=== PATIENT | female | born 1985 | race Caucasian/White ===

== ENCOUNTER 2016-03-27 14:41 | Emergency (ER) | payer MEDICAID, OTHER ==
[~2016-03-27] VITALS: Wt 106.0 kg
[2016-03-27] MEDS ORDERED: ALBU8.5H3 INH (16:21)
[2016-03-27] MEDS ORDERED: BENZ100C70 PO (16:22)
[2016-03-27] MEDS ORDERED: AZIT250T94 PO (16:22)
[2016-03-27] MEDS ORDERED: IBUP-1542 PO (16:22)
--- NOTE | 2016-03-27 16:31 | ERD ---
ER Documentation Chief Complaint Date/Time DATE: 03/27/16 TIME: 16:25 Chief Complaint COUGH FOR THE PAST FEW WEEKS WITH UPPER BACK PAIN . NO TRAUMA HPI Emmy is a 30-year-old female who presents to the emergency department with a cough 4 weeks. Patient states that the cough is dry in nature. Patient denies any phlegm production. Patient states she had a fever previously but it has now resolved. She states that she has upper back pain with coughing only. Patient denies any medication. Patient reports occasional rhinorrhea and throat irritation. Patient denies any shortness of breath, chest pain, diaphoresis. She states that she does have some wheezing at night. Patient denies any abdominal pain, nausea, vomiting, loss of consciousness. Sick contacts. No recent travel. ROS All systems reviewed and are negative except as per history of present illness. Medications Home Meds Active Scripts Benzonatate* (Tessalon Perle*) 100 Mg Capsule, 100 MG PO Q8H Y for COUGH, #15 CAP Prov:PACO MENON PA-C 03/27/16 Ibuprofen* (Motrin*) 600 Mg Tab, 600 MG PO Q6, #30 TAB Prov:PACO MENON PA-C 03/27/16 Azithromycin* (Zithromax*) 250 Mg Tablet, 250 MG PO .ZPACK DIRECTED, #6 TAB TAKE 500 MG (2 TABS) THE FIRST DAY THEN 250 MG (1 TAB) DAYS 2-5 Prov:PACO MENON PA-C 03/27/16 Albuterol Sulfate* (Proair HFA*) 8.5 Gm Hfa.aer.ad, 2 PUFF INH Q4H Y for WHEEZING AND SOB, #1 INHALER Prov:PACO MENON PA-C 03/27/16 Allergies Allergies: Coded Allergies: Penicillins (Verified Allergy, Unknown, 03/27/16) PMhx/Soc History of Surgery: Yes () Anesthesia Reaction: No Hx Neurological Disorder: No Hx Respiratory Disorders: No Hx Cardiac Disorders: No Hx Psychiatric Problems: No Hx Miscellaneous Medical Probl: No Hx Alcohol Use: No Hx Substance Use: No Hx Tobacco Use: No FmHx Family History: No diabetes Physical Exam Vitals Vital Signs Date Time Temp Pulse Resp B/P Pulse Ox O2 Delivery O2 Flow Rate FiO2 03/27/16 14:48 98.6 80 21 131/76 100 Physical Exam GENERAL: Well-developed, well-nourished female. Appears in no acute distress HEAD: Normocephalic, atraumatic. No deformities or ecchymosis. EYE: Pupils equal, round, and reactive to light. EOMs intact. No conjunctival erythema. No scleral icterus. No eye discharge. ENT: External ear without any masses or tenderness. Auditory canals clear bilaterally. TM visualized bilaterally, non-erythematous, non-bulging. Nasal mucosa pink with no discharge. Oropharynx is pink without any tonsillar erythema or exudates. No uvula deviation. No kissing tonsils. NECK: Supple. No lymphadenopathy. No meningismus. Normal Range of motion of the neck. LUNG: Clear to auscultation bilaterally. No rhonchi, wheezing, rales or coarse breath sounds. HEART: Regular rate and rhythm. No murmurs, rubs or gallops. EXTREMITIES: Equal pulses bilaterally. No peripheral clubbing, cyanosis or edema. No unilateral leg swelling. NEUROLOGIC: Alert and oriented to person, place and time. Moving all four extremities. 5/5 strength in all extremities. Normal speech. Steady gait. SKIN: Normal color. Warm and dry. No rashes or lesions. Procedures/MDM MEDICAL DECISION MAKING: This is a 30 female who presents the dry cough 4 weeks. Vital signs were reviewed. Patient was afebrile. Patient was not hypoxic. ENT exam was normal. Lung exam was normal. Given these findings, the patients presentation is most consistent with bronchitis of viral etiology. I have a much lower clinical concern for pneumonia, meningitis, sinusitis, otitis externa, acute otitis media , strep pharyngitis, epiglottitis or peritonsillar abscess. PRESCRIPTIONS: Albuterol inhaler, Z-Jhon, Tessalon Perles, ibuprofen DISCHARGE: At this time, patient is stable for discharge and outpatient management. Supportive therapies such as OTC throat lozenges, salt water gurgles, popsicles and jello discussed. I have instructed the patient to follow-up with his/her primary care physician in 1-2 days. I have instructed the patient to promptly return to the ER for any new or worsening symptoms including increased pain, swelling, fever, nausea, vomiting, weakness or difficulty breathing. The patient and/or family expressed understanding of and agreement with this plan. All questions were answered. Home care instructions were provided. Departure Diagnosis: Primary Impression: Acute bronchitis Bronchitis organism: unspecified organism Qualified Code: J20.9 - Acute bronchitis, unspecified organism Condition: Stable Patient Instructions: Bronchitis With Wheezing (Adult) Referrals: [facility] YOU HAVE RECEIVED A MEDICAL SCREENING EXAM AND THE RESULTS INDICATE THAT YOU DO NOT HAVE A CONDITION THAT REQUIRES URGENT TREATMENT IN THE EMERGENCY DEPARTMENT. FURTHER EVALUATION AND TREATMENT OF YOUR CONDITION CAN WAIT UNTIL YOU ARE SEEN IN YOUR DOCTORS OFFICE WITHIN THE NEXT 1-2 DAYS. IT IS YOUR RESPONSIBILITY TO MAKE AN APPOINTMENT FOR FOLOW-UP CARE. IF YOU HAVE A PRIMARY DOCTOR --you should call your primary doctor and schedule an appointment IF YOU DO NOT HAVE A PRIMARY DOCTOR YOU CAN CALL OUR PHYSICIAN REFERRAL HOTLINE AT IF YOU CAN NOT AFFORD TO SEE A PHYSICIAN YOU CAN CHOSE FROM THE FOLLOWING [facility] [address] [facility]. [facility] [address] [employer] [facility] [address] [facility] [address] [facility] [address] [facility]. [facility] [address] [facility]. [facility] YOU HAVE RECEIVED A MEDICAL SCREENING EXAM AND THE RESULTS INDICATE THAT YOU DO NOT HAVE A CONDITION THAT REQUIRES URGENT TREATMENT IN THE EMERGENCY DEPARTMENT. FURTHER EVALUATION AND TREATMENT OF YOUR CONDITION CAN WAIT UNTIL YOU ARE SEEN IN YOUR DOCTORS OFFICE WITHIN THE NEXT 1-2 DAYS. IT IS YOUR RESPONSIBILITY TO MAKE AN APPOINTMENT FOR FOLOW-UP CARE. IF YOU HAVE A PRIMARY DOCTOR --you should call your primary doctor and schedule and appointment IF YOU DO NOT HAVE A PRIMARY DOCTOR YOU CAN CALL OUR PHYSICIAN REFERRAL HOTLINE AT . IF YOU CAN NOT AFFORD TO SEE A PHYSICIAN YOU CAN CHOSE FROM THE FOLLOWING [facility] INSTITUTIONS: [facility] [address] [place] [address] [facility] [address] [place] [address] [facility] + [address] [address] Additional Instructions: Llame al doctor MAANA y kcai mirna RAMAN PARA DENTRO DE 1-2 MISTRY.Dgale a la secretaria que nosotros le instruimos hacer esta raman.Avise o llame si garvin condicin se empeora antes de la raman. Regresa aqui si peor o no mejor. PACO MENON PA-C Mar 27, 2016 16:31
== END 2016-03-27 16:25 | disposition home or self-care (01) ==
LOC: E/R 14:41
DX: J20.9 Acute bronchitis, unspecified (principal)
CPT/HCPCS: 99284